=== PATIENT | female | born 1955 | race Caucasian/White ===

== ENCOUNTER 2017-05-06 12:09 | Inpatient (IN) | payer BC ==
[~2017-05-06] VITALS: Ht 162.6 cm; Wt 77.0 kg
[~2017-05-06 12:09] MED LIST: BUPIVACAINE 0.5% (SDV) 30 ML, morphine SULFATE (PF) 8 MG, EPINEPHrine 0.3 MG, KETOROLAC... IRR SCH; DEXAMETHASONE 1 MG TAB PO SCH; GABAPENTIN 300 MG CAP PO SCH; SOD CHLORIDE 0.9% 100 ML, TRANEXAMIC ACID 3,000 MG IRR ONE; TRANEXAMIC ACID 1,000 MG in SOD CHLORIDE 0.9% 100 ML IVPB ONE; VANCOMYCIN 1 GM (PMX) 250 ML IVPB ONE; traMADol 50 MG TAB PO SCH
[2017-05-13] VITALS (24 sets, daily range): BP systolic 105–148; BP diastolic 55–78; PULSE 71–97; RESP 8–20; Ht 162.6 cm; Wt 77.0 kg
[2017-05-13] MEDS ORDERED: traMADol 50 MG TAB PO ONE (06:00)
[2017-05-13] MEDS ORDERED: GABAPENTIN 300 MG CAP PO ONE (06:00)
[2017-05-13] MEDS ORDERED: TRANEXAMIC ACID 1,000 MG in SOD CHLORIDE 0.9% 100 ML IVPB ONE (06:00)
[2017-05-13] MEDS ORDERED: BUPIVACAINE 0.5% (SDV) 30 ML, morphine SULFATE (PF) 8 MG, EPINEPHrine 0.3 MG, KETOROLAC... IRR SCH ×7 (06:00)
[2017-05-13] MEDS ORDERED: SOD CHLORIDE 0.9% 100 ML, TRANEXAMIC ACID 3,000 MG IRR ONE ×2 (06:00)
--- NOTE | 2017-05-13 06:45 | HPN ---
Date/Time of Note Date/Time of Note DATE: 05/13/17 TIME: 06:45 Interval H&P Admission Note Pt. seen H&P reviewed: No system changes ANTONETTE MEDRANO MD May 13, 2017 06:45
[2017-05-13] MEDS ORDERED: VANCOMYCIN 1 GM in NS 250 ML IVPB ONE (07:00)
[2017-05-13] MEDS ORDERED: VANCOMYCIN IV PER PHARMACY XX ONE (07:00)
[2017-05-13] MEDS ORDERED: METF1000 PO (08:05)
[2017-05-13] MEDS ORDERED: VALS1TAB76 PO (08:06)
[2017-05-13] MEDS ORDERED: LEVO50TA71 PO (08:07)
[2017-05-13] MEDS ORDERED: SERT100T PO (08:07)
[2017-05-13] MEDS ORDERED: PRD1OP5 LEFT EYE (08:08)
[2017-05-13] MEDS ORDERED: DICL2.5D11 LEFT EYE (08:09)
[2017-05-13] MEDS ORDERED: CPR3OO3.5 LEFT EYE (08:09)
[2017-05-13] MEDS ORDERED: CA CHLORIDE 10% 10 ML SYRINGE ONE (09:33)
[2017-05-13] MEDS ORDERED: THROMBIN 5000 UNIT VIAL ONE (09:33)
[2017-05-13] MEDS ORDERED: POLYMYXIN/BACITRACIN 1L IRRIG ONE (09:33)
[2017-05-13] MEDS ORDERED: LIDOCAINE 2% (SDV) 5 ML INJ ONE (09:44)
[2017-05-13] MEDS ORDERED: PROPOFOL 20 ML ONE (09:44)
[2017-05-13] MEDS ORDERED: morphine SULFATE/PF (10 MG/10 ML) INJ ONE (09:44)
[2017-05-13] MEDS ORDERED: ONDANSETRON 4 MG INJ ONE (09:49)
[2017-05-13] MEDS ORDERED: METOCLOPRAMIDE 10 MG INJ ONE (09:49)
[2017-05-13] MEDS ORDERED: NALOXONE (0.4 MG/ML) INJ IV PRN (10:00)
[2017-05-13] MEDS ORDERED: DIPHENHYDRAMINE 50 MG INJ IV PRN ×2 (10:00→12:30)
[2017-05-13] MEDS ORDERED: EPHEDrine SULFATE 50 MG/5 ML SYG IV PRN (10:00)
[2017-05-13] MEDS ORDERED: ONDANSETRON 4 MG INJ IV PRN ×2 (10:00→12:30)
[2017-05-13] MEDS ORDERED: morphine SULFATE/PF (10 MG/10 ML) INJ SPINAL ONE (10:00)
[2017-05-13] MEDS ORDERED: morphine 2 MG INJ IV PRN ×2 (10:00→12:30)
[2017-05-13] MEDS ORDERED: morphine 4 MG/ML VIAL IV PRN (10:00)
[2017-05-13] MEDS ORDERED: EPHEDrine SULFATE 50 MG/5 ML SYG ONE (10:31)
[2017-05-13] MEDS ORDERED: DEXAMETHASONE 1 MG TAB PO ONE (11:00)
[2017-05-13] MEDS: LACTATED RINGER'S 1,000 ML IV SCH ×2 (12:18→15:32)
--- NOTE | 2017-05-13 12:22 | OPR ---
Date/Time of Note Date/Time of Note DATE: 05/13/17 TIME: 12:19 Operative Report Procedure Date: May 13, 2017 Preoperative Diagnosis Left hip primary arthritis Postoperative Diagnosis Left hip primary arthritis Operation Performed Left total hip arthroplasty Surgeon: ANTONETTE MEDRANO MD Group Contract Analyst: PETER RAMIREZ MD Anesthesia Type: general Estimated Blood Loss: 150 - 200 ml's Complications: no Pt Condition Post Procedure: stable Disposition: PACU Procedure Description COPY WORKER SURGEON: Peter Fabian MD was asked to be present at my request as a result of the complexity associated with this procedure including positioning of the extremity, positioning of the instrumentation and protection of the neurovascular structures. In my opinion, the assistance offered by a surgical endoscopist is insufficient and Dr. Palak Stern should be compensated for his time. PROCEDURE IN DETAIL: Following the administration of general endotracheal anesthesia supplemented with a spinal anesthetic, the patient was placed in the supine position. The bilateral lower extremities were then prepped and draped in the usual sterile fashion. A director of public relations radiograph was obtained for preliminary limb length and femoral size as well as acetabular size. A lateral incision was then made exposing the tensor fascia the fascia was incised the tensor was retracted laterally and the vessels were cauterized. The anterior capsule was then identified and prepared. A capsulectomy was then performed and the femoral head was then evaluated. Severe arthritic changes were noted. A femoral head cut was then made in the appropriate degree of version and inclination. The acetabulum was then exposed and a capsulectomy and labrectomy were completed. The central portion was then entered and serially reamed up to the 51 mm size. A Depuy [place] cup which is 52 mm in size with a standard liner was then fit into position with solid fixation. Attention was then directed to the femur, the femur was exposed and prepared. The canal was entered and serially reamed up to the 10 mm size. A 10 mm Depuy [place] stem was then inserted with solid fixation. A 1.5 femoral head, which was ceramic was then inserted. The leg was taken through full range of motion with no evident instability. In addition, radiographs revealed excellent position with reproduction of the limb lengths within a millimeter. The wound was irrigated thoroughly. The wound was then closed in layers and a Prenio for the final cover. This was watertight. Estimated blood loss was procedure was 200 cc. Postoperative radiographs will be obtained in the recovery room. TRANSFUSION REQUIRED: ANTONETTE Mcknight MD May 13, 2017 12:22
--- NOTE | 2017-05-13 12:23 | PDOCDIS ---
Discharge Instructions DIAGNOSIS Discharge Diagnosis Primary hip arthritis CONDITION Patient Condition: Good HOME CARE INSTRUCTIONS: Diet Instructions: Regular ACTIVITY: Activity Restrictions: Slowly Increase Activity Keep Limb Elevated Bathing Restrictions: Shower FOLLOW UP/APPOINTMENTS Follow-up Plan 2 weeks SCHOOL/WORK RELEASE May return to School/Work with: With Restrictions School/Work Release Comment: No hip extension for 6 weeks ANTONETTE MEDRANO MD May 13, 2017 12:23
[2017-05-13] MEDS ORDERED: KETOROLAC 15 MG INJ IV PRN (12:30)
[2017-05-13] MEDS ORDERED: TRANEXAMIC ACID 1,000 MG in SOD CHLORIDE 0.9% 100 ML IV ONE (12:30)
[2017-05-13] MEDS ORDERED: BETHANECHOL 25 MG TAB PO PRN (12:30)
[2017-05-13] MEDS ORDERED: ACETAMINOPHEN 500 MG TAB PO PRN (12:30)
[2017-05-13] MEDS ORDERED: OXYCODONE/ACETAMINOPHEN (5/325) TAB PO PRN (12:30)
[2017-05-13] MEDS ORDERED: MAGNESIUM HYDROXIDE 30ML CUP PO PRN (12:30)
[2017-05-13] MEDS ORDERED: VANCOMYCIN IV PER PHARMACY XX SCH (12:30)
[2017-05-13] MEDS ORDERED: ZOLPIDEM 5 MG TAB PO PRN (12:30)
[2017-05-13 13:00] LABS: BASOPHIL # 0.1 10^3/ul (0.0-0.1); BASOPHILS % 0.5 % (0.0-2.0); EOSINOPHILS # 0.1 10^3/ul (0.0-0.5); EOSINOPHILS % 0.6 % (0.0-7.0); HEMATOCRIT 34.8 % (37.0-47.0); HEMOGLOBIN 11.3 g/dl (12.0-16.0); LYMPHOCYTES # 1.6 10^3/ul (0.8-2.9); LYMPHOCYTES % 14.9 % (15.0-51.0); MEAN CORPUSCULAR HEMOGLOBIN 28.8 pg (29.0-33.0); MEAN CORPUSCULAR HGB CONC 32.5 g/dl (32.0-37.0); MEAN CORPUSCULAR VOLUME 88.8 fl (82.0-101.0); MEAN PLATELET VOLUME 9.2 fl (7.4-10.4); MONOCYTE # 0.3 10^3/ul (0.3-0.9); MONOCYTES % 2.4 % (0.0-11.0); NEUTROPHILS % 79.8 % (39.0-77.0); PLATELET COUNT 280 10^3/UL (140-415); RED BLOOD COUNT 3.92 10^6/ul (4.20-5.40); RED CELL DISTRIBUTION WIDTH 12.6 % (11.5-14.5); WHITE BLOOD COUNT 10.4 10^3/ul (4.8-10.8)
[2017-05-13] MEDS: CIPROFLOXACIN 0.3% 3.5 GM OPH OINT LEFT EYE SCH ×2 (13:00→17:00)
[2017-05-13] MEDS: DICLOFENAC 0.1% 2.5 ML OPH LEFT EYE SCH ×3 (13:00→22:11)
--- NOTE | 2017-05-13 13:17 | RADRPT ---
PROCEDURE: XR Pelvis. CLINICAL INDICATION: Status post left hip replacement. TECHNIQUE: Single AP view of the pelvis. COMPARISON: No prior studies are available for comparison. FINDINGS: Left hip replacement is identified. The prosthetic components are in appropriate position and align ment. The osseous structures are intact. No destructive bony lesions are observed. Degenerative c hanges are seen in the lower lumbar spine. Gregory catheter is identified over the lower pelvis. Soft tissue air over the left hip is procedural in nature. IMPRESSION: Left hip replacement. Prosthetic components are in appropriate position and alignment. Degenerative changes in the lower lumbar spine. RPTAT: AA .Costa Rowe MD, MD Date Time Electronically viewed and signed by .Costa Rowe MD, MD on 05/13/2017 13:16 .P/
--- NOTE | 2017-05-13 13:17 | RADRPT ---
PROCEDURE: X-ray fluoroscopy guidance CLINICAL INDICATION: Left hip replacement, fluoroscopic guidance TECHNIQUE: Fluoroscopic guidance was utilized for an intraoperative procedure. COMPARISON: None available FINDINGS: Fluoroscopic guidance was utilized for and intraoperative procedure. 0.4 minutes of fluoroscopy time was utilized for the procedure. 7 x-ray images were obtained during the procedure in progress. Aline l images demonstrate a left hip replacement. Prosthetic components appear in appropriate position a nd alignment. IMPRESSION: X-ray fluoroscopic guidance utilized for intraoperative procedure. Left hip replacement with prosthetic components in appropriate position and alignment. Please see procedure note for details. RPTAT: AA .Costa Rowe MD, Date Time Electronically viewed and signed by .Costa Rowe MD, MD on 05/13/2017 13:17 .P/
[2017-05-13] MEDS ORDERED: GLUCOSE GEL 15 GRAM TUBE BUCCAL PRN (13:30)
[2017-05-13] MEDS ORDERED: TRANEXAMIC ACID 1,000 MG in SOD CHLORIDE 0.9% 100 ML IV SCH (13:30)
[2017-05-13] MEDS ORDERED: DEXTROSE 50% 50 ML SYRINGE IV PRN ×2 (13:30)
[2017-05-13] MEDS ORDERED: GLUCAGON 1 MG INJ IM PRN (13:30)
[2017-05-13] MEDS ORDERED: GLUCOSE GEL 15 GRAM TUBE PO PRN ×2 (13:30)
[2017-05-13] MEDS: metFORMIN 500 MG TAB PO SCH (18:33)
[2017-05-13] MEDS: DEXAMETHASONE 2 MG TAB PO SCH ×2 (18:34→23:51)
[2017-05-13] MEDS: PREDNISOLONE ACET 1% 5 ML OPH LEFT EYE SCH ×2 (21:00→22:05)
[2017-05-13] MEDS: CIPROFLOXACIN 0.3% 2.5 ML OPH LEFT EYE SCH (22:03)
[2017-05-13] MEDS: GABAPENTIN 300 MG CAP PO SCH (22:04)
[2017-05-13] MEDS: VANCOMYCIN 1 GM in NS 250 ML IVPB SCH (22:04)
[2017-05-13] MEDS: SENNA/DOCUSATE NA (8.6MG/50MG) TAB PO SCH (22:04)
[2017-05-14 00:21] VITALS: BP 114/56; RESP 20
[2017-05-14] MEDS: LACTATED RINGER'S 1,000 ML IV SCH (02:34)
[2017-05-14 03:57] LABS: BASOPHILS % 0.2 % (0.0-2.0); HEMATOCRIT 28.6 % (37.0-47.0); HEMOGLOBIN 9.3 g/dl (12.0-16.0); LYMPHOCYTES # 1.1 10^3/ul (0.8-2.9); LYMPHOCYTES % 9.7 % (15.0-51.0); MEAN CORPUSCULAR HEMOGLOBIN 29.2 pg (29.0-33.0); MEAN CORPUSCULAR HGB CONC 32.5 g/dl (32.0-37.0); MEAN CORPUSCULAR VOLUME 89.7 fl (82.0-101.0); MEAN PLATELET VOLUME 9.2 fl (7.4-10.4); MONOCYTE # 0.6 10^3/ul (0.3-0.9); MONOCYTES % 5.2 % (0.0-11.0); NEUTROPHILS % 84.3 % (39.0-77.0); PLATELET COUNT 221 10^3/UL (140-415); RED BLOOD COUNT 3.19 10^6/ul (4.20-5.40); RED CELL DISTRIBUTION WIDTH 12.6 % (11.5-14.5)
--- NOTE | 2017-05-14 06:03 | PN ---
Date/Time of Note Date/Time of Note DATE: 05/14/17 TIME: 06:01 24 hour Interval Summary Patient is awake and alert this morning. She has no discomfort. She does have some urine in her Gregory catheter which was noted immediately postoperatively. Subsequent H&H has shown that her hemoglobin is 9.3 and hematocrit is 28.6. She appears to have no significant clinical symptoms from this. Upon discussing the situation with the patient she has had 2 prior episodes in the last 6 weeks where she had spontaneous bleeding from her bladder. She has been evaluated by her urologist and no significant treatment was undertaken at this time. I have counseled her that she should follow-up today or in the next few days with the urologist. In addition, we will go ahead and order a urinalysis today to delineate what the level of blood actually is. Physical Exam Physical examination: Patient wound is clean and dry she is neurologically intact. She has no signs of DVT. Vital Signs Date Time Temp Pulse Resp B/P Pulse Ox O2 Delivery O2 Flow Rate FiO2 05/14/17 00:21 98.6 67 20 114/56 98 05/13/17 16:30 Nasal Cannula 2.0 Intake and Output 05/13/17 05/13/17 05/14/17 15:00 23:00 07:00 Intake Total 1600 ml 600 ml 2750 ml Output Total 300 ml 450 ml 1100 ml Balance 1300 ml 150 ml 1650 ml VTE Prophylaxis VTE Prophylaxis Intervention: anti-embolic stocking Lines/Catheters IV Catheter Type: Saline Lock Gregory in Place: No Results Result Diagram: 05/14/17 0340 Results 24hrs Laboratory Tests Test 05/13/17 08:45 05/13/17 12:45 05/14/17 03:40 Bedside Glucose 174 White Blood Count 10.4 11.0 H Red Blood Count 3.92 L 3.19 L Hemoglobin 11.3 L 9.3 L Hematocrit 34.8 L 28.6 L Mean Corpuscular Volume 88.8 89.7 Mean Corpuscular Hemoglobin 28.8 L 29.2 Mean Corpuscular Hemoglobin Concent 32.5 32.5 Red Cell Distribution Width 12.6 12.6 Platelet Count 280 221 # Mean Platelet Volume 9.2 9.2 Neutrophils % 79.8 H 84.3 H Lymphocytes % 14.9 L 9.7 L Monocytes % 2.4 5.2 Eosinophils % 0.6 0.0 Basophils % 0.5 0.2 Nucleated Red Blood Cells % 0.0 0.0 Neutrophils # (Manual) 8.3 H 9.2 H Lymphocytes # 1.6 1.1 Monocytes # 0.3 0.6 Eosinophils # 0.1 0.0 Basophils # 0.1 0.0 Nucleated Red Blood Cells # 0.0 0.0 Assessment/Plan Assessment/Plan Assessment/plan: 1. she will begin physical therapy this morning and to be discharged following clearance by physical therapy. 2., She will follow-up with her urologist with respect to the blood in her urine. Medications Medications Home Meds Reported Medications Diclofenac Sodium* (Diclofenac Oph*) 2.5 Ml Drops, 1 DROP LEFT EYE QID, #1 EA 05/13/17 Ciprofloxacin Opht* (Ciloxan*) 0.3%-3.5 Opht Oint, 1 APPLIC LEFT EYE QID, EA 05/13/17 Prednisolone Acetate* (Pred Forte*) 5 Ml Susp, 1 DROP LEFT EYE BID, EA 05/13/17 Sertraline Hcl* (Zoloft*) 100 Mg Tablet, 100 MG PO DAILY, #30 TAB 05/13/17 Levothyroxine Sodium* (Levoxyl*) 50 Mcg Tablet, 50 MCG PO BEFORE BREAKFAST, #30 TAB 05/13/17 Valsartan-Hydrochlorothiazide (Valsartan-HCTZ) 160-12.5 Mg Tablet, 1 TAB PO DAILY, #30 TAB 05/13/17 Metformin Hcl* (Metformin Hcl*) 1,000 Mg Tablet, 1000 MG PO WITH BREAKFAST DINNE , #30 TAB 05/13/17 ANTONETTE MEDRANO MD May 14, 2017 06:03
--- NOTE | 2017-05-14 06:04 | DS ---
Date/Time of Note Date/Time of Note DATE: 05/14/17 TIME: 06:03 Discharge Summary Admission/Discharge Info Admit Date/Time May 13, 2017 at 07:21 Discharge Date/Time May 14, 2017 following clearance by physical therapy Discharge Diagnosis Primary hip arthritis Patient Condition: Good Procedures Left total hip arthroplasty Hx of Present Illness Pain and stiffness in the left hip for many years Hospital Course Patient underwent an uncomplicated procedure. Postoperatively, it was noted that she had some blood in her urine in the catheter. A subsequent CBC showed that she was stable. She was counseled that she should follow-up with her urologist since she does have a history of spontaneous bleeding in the last 6 weeks. With respect to the hip she did well and was discharged to be followed up in the office in 2 weeks. Home Meds Reported Medications Diclofenac Sodium* (Diclofenac Oph*) 2.5 Ml Drops, 1 DROP LEFT EYE QID, #1 EA 05/13/17 Ciprofloxacin Opht* (Ciloxan*) 0.3%-3.5 Opht Oint, 1 APPLIC LEFT EYE QID, EA 05/13/17 Prednisolone Acetate* (Pred Forte*) 5 Ml Susp, 1 DROP LEFT EYE BID, EA 05/13/17 Sertraline Hcl* (Zoloft*) 100 Mg Tablet, 100 MG PO DAILY, #30 TAB 05/13/17 Levothyroxine Sodium* (Levoxyl*) 50 Mcg Tablet, 50 MCG PO BEFORE BREAKFAST, #30 TAB 05/13/17 Valsartan-Hydrochlorothiazide (Valsartan-HCTZ) 160-12.5 Mg Tablet, 1 TAB PO DAILY, #30 TAB 05/13/17 Metformin Hcl* (Metformin Hcl*) 1,000 Mg Tablet, 1000 MG PO WITH BREAKFAST DINNE , #30 TAB 05/13/17 Primary Care Provider Not On Staff Doctor Pending Labs Laboratory Tests Test 05/13/17 08:45 05/13/17 12:45 05/14/17 03:40 Bedside Glucose 174mg/dL (70-220) White Blood Count 10.410^3/ul (4.8-10.8) 11.010^3/ul (4.8-10.8) Red Blood Count 3.9210^6/ul (4.20-5.40) 3.1910^6/ul (4.20-5.40) Hemoglobin 11.3g/dl (12.0-16.0) 9.3g/dl (12.0-16.0) Hematocrit 34.8% (37.0-47.0) 28.6% (37.0-47.0) Mean Corpuscular Volume 88.8fl (82.0-101.0) 89.7fl (82.0-101.0) Mean Corpuscular Hemoglobin 28.8pg (29.0-33.0) 29.2pg (29.0-33.0) Mean Corpuscular Hemoglobin Concent 32.5g/dl (32.0-37.0) 32.5g/dl (32.0-37.0) Red Cell Distribution Width 12.6% (11.5-14.5) 12.6% (11.5-14.5) Platelet Count 80582^3/UL (140-415) 25933^3/UL (140-415) Mean Platelet Volume 9.2fl (7.4-10.4) 9.2fl (7.4-10.4) Neutrophils % 79.8% (39.0-77.0) 84.3% (39.0-77.0) Lymphocytes % 14.9% (15.0-51.0) 9.7% (15.0-51.0) Monocytes % 2.4% (0.0-11.0) 5.2% (0.0-11.0) Eosinophils % 0.6% (0.0-7.0) 0.0% (0.0-7.0) Basophils % 0.5% (0.0-2.0) 0.2% (0.0-2.0) Nucleated Red Blood Cells % 0.0/100WBC (0.0-0.0) 0.0/100WBC (0.0-0.0) Neutrophils # (Manual) 8.310^3/ul (1.7-7.5) 9.210^3/ul (1.7-7.5) Lymphocytes # 1.610^3/ul (0.8-2.9) 1.110^3/ul (0.8-2.9) Monocytes # 0.310^3/ul (0.3-0.9) 0.610^3/ul (0.3-0.9) Eosinophils # 0.110^3/ul (0.0-0.5) 0.010^3/ul (0.0-0.5) Basophils # 0.110^3/ul (0.0-0.1) 0.010^3/ul (0.0-0.1) Nucleated Red Blood Cells # 0.010^3/ul (0.0-0.0) 0.010^3/ul (0.0-0.0) ANTONETTE MEDRANO MD May 14, 2017 06:04
[2017-05-14] MEDS: DEXAMETHASONE 2 MG TAB PO SCH ×2 (06:21→12:17)
[2017-05-14] MEDS: LEVOTHYROXINE 50 MCG TAB PO SCH (06:21)
[2017-05-14 07:00] VITALS: BP 98/55; RESP 18
[2017-05-14] MEDS: OXYCODONE/ACETAMINOPHEN (5/325) TAB PO PRN ×2 (07:49→17:23)
[2017-05-14 08:19] LABS: ADD UMIC YES; UR ASCORBIC ACID NEGATIVE (NEGATIVE); UR BACTERIA FEW /HPF (NONE SEEN); UR BILIRUBIN (Dip) NEGATIVE (NEGATIVE); UR BLOOD (Dip) 3+ mg/dL (NEGATIVE); UR CLARITY CLEAR (CLEAR); UR COLOR AMBER (YELLOW); UR GLUCOSE (Dip) NEGATIVE (NEGATIVE); UR KETONES (Dip) NEGATIVE (NEGATIVE); UR LEUKOCYTE ESTERASE (Dip) NEGATIVE Leu/ul (NEGATIVE); UR NITRITE (Dip) NEGATIVE (NEGATIVE); UR RBC 19 /HPF (0-5); UR SPECIFIC GRAVITY (Dip) 1.003 (1.003-1.030); UR TOTAL PROTEIN (Dip) 2+ mg/dl (NEGATIVE); UR UROBILINOGEN (Dip) NEGATIVE (NEGATIVE)
[2017-05-14] MEDS: SERTRALINE 100 MG TAB PO SCH (08:57)
[2017-05-14] MEDS: SENNA/DOCUSATE NA (8.6MG/50MG) TAB PO SCH ×2 (08:57→21:17)
[2017-05-14] MEDS: metFORMIN 500 MG TAB PO SCH ×2 (08:57→17:22)
[2017-05-14] MEDS: ASPIRIN 81 MG TAB PO SCH (08:57)
[2017-05-14] MEDS: PREDNISOLONE ACET 1% 5 ML OPH LEFT EYE SCH ×4 (09:00→21:17)
[2017-05-14] MEDS: CIPROFLOXACIN 0.3% 2.5 ML OPH LEFT EYE SCH ×4 (09:01→21:17)
[2017-05-14] MEDS: DICLOFENAC 0.1% 2.5 ML OPH LEFT EYE SCH ×4 (09:01→21:17)
[2017-05-14 10:52] VITALS: BP 108/52; PULSE 93
[2017-05-14] MEDS: VANCOMYCIN 1 GM in NS 250 ML IVPB SCH (11:11)
[2017-05-14] MEDS: VALSARTAN 160 MG TAB PO SCH (12:17)
[2017-05-14] MEDS: HYDROCHLOROTHIAZIDE 12.5 MG CAP PO SCH (12:18)
[2017-05-14 14:00] VITALS: BP 128/60; RESP 20
[2017-05-14 19:45] VITALS: BP 120/56; RESP 22
[2017-05-14] MEDS: GABAPENTIN 300 MG CAP PO SCH (21:17)
[2017-05-14] MEDS: morphine 4 MG/ML VIAL IV PRN (22:47)
[2017-05-15] MEDS: morphine 4 MG/ML VIAL IV PRN ×2 (03:12→08:15)
[2017-05-15 05:25] LABS: BASOPHILS % 0.1 % (0.0-2.0); EOSINOPHILS % 0.2 % (0.0-7.0); HEMATOCRIT 25.4 % (37.0-47.0); HEMOGLOBIN 8.3 g/dl (12.0-16.0); LYMPHOCYTES # 2.5 10^3/ul (0.8-2.9); LYMPHOCYTES % 30.6 % (15.0-51.0); MEAN CORPUSCULAR HEMOGLOBIN 29.3 pg (29.0-33.0); MEAN CORPUSCULAR HGB CONC 32.7 g/dl (32.0-37.0); MEAN CORPUSCULAR VOLUME 89.8 fl (82.0-101.0); MEAN PLATELET VOLUME 9.4 fl (7.4-10.4); MONOCYTE # 0.7 10^3/ul (0.3-0.9); MONOCYTES % 8.7 % (0.0-11.0); PLATELET COUNT 210 10^3/UL (140-415); RED BLOOD COUNT 2.83 10^6/ul (4.20-5.40); RED CELL DISTRIBUTION WIDTH 12.4 % (11.5-14.5); WHITE BLOOD COUNT 8.2 10^3/ul (4.8-10.8)
[2017-05-15 08:01] VITALS: BP 119/56; RESP 20
[2017-05-15] MEDS: SENNA/DOCUSATE NA (8.6MG/50MG) TAB PO SCH (08:19)
[2017-05-15] MEDS: LEVOTHYROXINE 50 MCG TAB PO SCH (08:19)
[2017-05-15] MEDS: ASPIRIN 81 MG TAB PO SCH (08:19)
[2017-05-15] MEDS: SERTRALINE 100 MG TAB PO SCH (08:20)
[2017-05-15] MEDS: HYDROCHLOROTHIAZIDE 12.5 MG CAP PO SCH (08:20)
[2017-05-15] MEDS: VALSARTAN 160 MG TAB PO SCH (08:21)
[2017-05-15] MEDS: DICLOFENAC 0.1% 2.5 ML OPH LEFT EYE SCH ×2 (08:22→12:37)
[2017-05-15] MEDS: PREDNISOLONE ACET 1% 5 ML OPH LEFT EYE SCH ×2 (08:22→08:27)
[2017-05-15] MEDS: CIPROFLOXACIN 0.3% 2.5 ML OPH LEFT EYE SCH ×2 (08:22→12:37)
[2017-05-15] MEDS: metFORMIN 500 MG TAB PO SCH (08:26)
[2017-05-15] MEDS: OXYCODONE/ACETAMINOPHEN (5/325) TAB PO PRN (12:40)
[2017-05-15 14:00] VITALS: BP 134/63; RESP 18
--- NOTE | 2017-05-15 14:22 | PN ---
Date/Time of Note Date/Time of Note DATE: 05/15/17 TIME: 14:20 24 hour Interval Summary Comfortalble and tolerated PT well. Physical Exam PE: No signs DVT. wound clean and dry. NVI> Vital Signs Date Time Temp Pulse Resp B/P Pulse Ox O2 Delivery O2 Flow Rate FiO2 05/15/17 08:01 98.3 87 20 119/56 98 05/13/17 16:30 Nasal Cannula 2.0 Intake and Output 05/14/17 05/14/17 05/15/17 15:00 23:00 07:00 Intake Total 250 ml 1660 ml 1200 ml Output Total 1200 ml 1100 ml Balance 250 ml 460 ml 100 ml VTE Prophylaxis VTE Prophylaxis Intervention: anti-embolic stocking Lines/Catheters IV Catheter Type: Saline Lock Gregory in Place: No Results Result Diagram: 05/15/17 0452 Results 24hrs Laboratory Tests Test 05/14/17 17:21 05/15/17 04:52 Bedside Glucose 192 White Blood Count 8.2 # Red Blood Count 2.83 L Hemoglobin 8.3 L Hematocrit 25.4 L Mean Corpuscular Volume 89.8 Mean Corpuscular Hemoglobin 29.3 Mean Corpuscular Hemoglobin Concent 32.7 Red Cell Distribution Width 12.4 Platelet Count 210 Mean Platelet Volume 9.4 Neutrophils % 60.0 Lymphocytes % 30.6 Monocytes % 8.7 Eosinophils % 0.2 Basophils % 0.1 Nucleated Red Blood Cells % 0.0 Neutrophils # (Manual) 4.9 Lymphocytes # 2.5 Monocytes # 0.7 Eosinophils # 0.0 Basophils # 0.0 Nucleated Red Blood Cells # 0.0 Assessment/Plan Chief Complaint/Hosp Course Patient underwent an uncomplicated procedure. Postoperatively, it was noted that she had some blood in her urine in the catheter. A subsequent CBC showed that she was stable. She was counseled that she should follow-up with her urologist since she does have a history of spontaneous bleeding in the last 6 weeks. With respect to the hip she did well and was discharged to be followed up in the office in 2 weeks. Problems: Assessment/Plan A/P: D/c home later today. H/H is low, but not symptomatic Medications Medications Home Meds Reported Medications Diclofenac Sodium* (Diclofenac Oph*) 2.5 Ml Drops, 1 DROP LEFT EYE QID, #1 EA 9/7/17 Ciprofloxacin Opht* (Ciloxan*) 0.3%-3.5 Opht Oint, 1 APPLIC LEFT EYE QID, EA 05/13/17 Prednisolone Acetate* (Pred Forte*) 5 Ml Susp, 1 DROP LEFT EYE BID, EA 05/13/17 Sertraline Hcl* (Zoloft*) 100 Mg Tablet, 100 MG PO DAILY, #30 TAB 05/13/17 Levothyroxine Sodium* (Levoxyl*) 50 Mcg Tablet, 50 MCG PO BEFORE BREAKFAST, #30 TAB 05/13/17 Valsartan-Hydrochlorothiazide (Valsartan-HCTZ) 160-12.5 Mg Tablet, 1 TAB PO DAILY, #30 TAB 05/13/17 Metformin Hcl* (Metformin Hcl*) 1,000 Mg Tablet, 1000 MG PO WITH BREAKFAST DINNE , #30 TAB 05/13/17 ANTONETTE MEDRANO MD May 15, 2017 14:22
== END 2017-05-15 15:11 | disposition home or self-care (01) | DRG 470 ==
LOC: EDSTATUS 14:30 → REC 05-13 07:21 → MS1 05-13 13:32
PROVIDERS: ADMIT Orthopaedic Surgery; ATTEND Orthopaedic Surgery
PROC: 0SRB04Z Replacement of Left Hip Joint with Ceramic on Polyethylene Synthetic Substitute, Open Approach (ICD-10-PCS; principal; 2017-05-13 10:00)
DX: M13.852 Other specified arthritis, left hip (principal); I10 Essential (primary) hypertension; E78.5 Hyperlipidemia, unspecified; J45.909 Unspecified asthma, uncomplicated; E11.9 Type 2 diabetes mellitus without complications; E03.9 Hypothyroidism, unspecified; F32.9 Major depressive disorder, single episode, unspecified; F41.9 Anxiety disorder, unspecified
CPT/HCPCS: 72170; 73530; 81001; 82962; 85025; 86999; 87086; 88304; 88311; 97116; 97162; 97530; C1713; C1776; J0171; J0735; J1885; J2270; J2274; J2405; J2765; J3370; J7120